=== PATIENT | male | born 1925 | race Caucasian/White ===

== ENCOUNTER 2017-08-12 16:32 | Inpatient (IN) | payer OTHER, BC ==
[~2017-08-12] VITALS: Ht 179.1 cm; Wt 110.1 kg
[2017-08-12] MEDS ORDERED: MICRO-K10 ME2 PO (18:19)
[2017-08-12] MEDS ORDERED: LEXAPRO5 MG PO (18:19)
[2017-08-12] MEDS ORDERED: FORTAMET500 M1 PO (18:19)
[2017-08-12] MEDS ORDERED: SYNTHROID100 MCG PO (18:19)
[2017-08-12] MEDS ORDERED: FUROSEMIDE20 MG PO (18:20)
[2017-08-12] MEDS ORDERED: ARICEPT5 MG PO (18:20)
[2017-08-12] MEDS ORDERED: NAMENDA10 MG PO (18:20)
[2017-08-12] MEDS ORDERED: ATORVASTATIN CA20 MG PO (18:20)
[2017-08-12] MEDS ORDERED: IMODIUM A-D2 M2 PO (18:20)
[2017-08-12] MEDS ORDERED: OCUVITE TABLET1 EACH PO (18:20)
[2017-08-12] MEDS ORDERED: COZAAR50 MG PO (18:20)
[2017-08-12 18:29] LABS: HEMOGLOBIN 14.4 G/DL (12.5-16.6); MCH 33.4 PG (29.0-34.0); MCHC 33.5 G/DL (30.0-36.0); MCV 99.8 FL (86-99); PLATELET COUNT 197 K/uL (156-360); RBC DIS.WIDTH-CV 12.6 % (11.8-14.6); RBC DIS.WIDTH-SD 46.4 % (39-53); RED BLOOD COUNT 4.31 M/uL (4.00-5.50); WHITE BLOOD COUNT 7.4 K/uL (4.1-10.2)
[2017-08-12 18:38] LABS: CHLORIDE 103 mEq/L (99-109); POTASSIUM 4.5 mEq/L (3.7-5.4); SODIUM 142 mEq/L (136-147)
[2017-08-12 18:40] LABS: GLUCOSE 121 mg/dL (70-99)
[2017-08-12 18:44] LABS: CREATININE 1.2 mg/dL (0.6-1.3); GFR ESTIMATE (CALCULATED) > 59 mL/min/ (58.99-99999)
[2017-08-12 18:45] LABS: UREA NITROGEN (BUN) 14 mg/dL (9-23)
[2017-08-12 18:51] LABS: TROP-I INTERPRETATION NEGATIVE; TROPONIN-I 0.02 ng/mL (0.0-0.30)
[2017-08-12 18:58] LABS: APPEARANCE CLEAR ((CLEAR)); BILIRUBIN NEGATIVE; BLOOD NEGATIVE; COLOR YELLOW ((YELLOW)); GLUCOSE (STRIP) NEGATIVE; KETONES NEGATIVE; LEUKOCYTES NEGATIVE; NITRITE NEGATIVE; PROTEIN (STRIP) NEGATIVE; SPECIFIC GRAVITY 1.018 (1.000-1.030); UROBILINOGEN 0.2 MG/DL (0.2-1.0)
[2017-08-12 19:38] LABS: THYROTROPIN (TSH) 0.86 MIU/L (0.4-5.5)
[2017-08-12 21:00] VITALS: BP 183/79
[2017-08-12 23:55] VITALS: BP 149/68
[2017-08-13 04:00] VITALS: BP 150/67
[2017-08-13 09:16] LABS: TROP-I INTERPRETATION NEGATIVE; TROPONIN-I 0.01 ng/mL (0.0-0.30)
[2017-08-13 11:14] VITALS: BP 160/80
[2017-08-13 15:00] VITALS: BP 144/74
[2017-08-13 19:44] VITALS: BP 170/78
[2017-08-13 23:08] VITALS: BP 174/81
[2017-08-14 04:28] VITALS: BP 168/84
[2017-08-14 06:03] LABS: BASOPHIL (%) 0.2 % (0-1); EOSINOPHIL (%) 0 % (0-5); HEMATOCRIT 40.5 % (38.0-50.0); HEMOGLOBIN 13.7 G/DL (12.5-16.6); IMMATURE GRANULOCYTE (%) 0.4 % (0.0-0.7); LYMPHOCYTE (%) 9.9 % (15-42); LYMPHOCYTE COUNT 1.1 K/uL (1.0-2.8); MCH 33.1 PG (29.0-34.0); MCHC 33.8 G/DL (30.0-36.0); MCV 97.8 FL (86-99); MONOCYTE (%) 8.6 % (3-12); MONOCYTE COUNT 0.9 K/uL (0-0.8); NEUTROPHIL (%) 80.9 % (45-76); NEUTROPHIL COUNT 8.8 K/uL (1.8-6.4); PLATELET COUNT 165 K/uL (156-360); RBC DIS.WIDTH-CV 12.7 % (11.8-14.6); RBC DIS.WIDTH-SD 45.4 % (39-53); RED BLOOD COUNT 4.14 M/uL (4.00-5.50); WHITE BLOOD COUNT 10.9 K/uL (4.1-10.2)
[2017-08-14 06:43] LABS: CHLORIDE 101 MEQ/L (99-109); CREATININE 1.1 MG/DL (0.6-1.3); GFR ESTIMATE (CALCULATED) > 59 mL/min/ (58.99-99999); GLUCOSE 181 mg/dL (70-99); POTASSIUM 4.1 MEQ/L (3.7-5.4); SODIUM 138 MEQ/L (136-147)
[2017-08-14 07:01] LABS: UREA NITROGEN (BUN) 23 mg/dL (9-23)
[2017-08-14 07:31] VITALS: BP 176/89
[2017-08-14 10:52] VITALS: BP 187/95
[2017-08-14 15:47] VITALS: BP 193/100
[2017-08-14 20:02] VITALS: BP 192/98
[2017-08-14 23:53] VITALS: BP 142/70
[2017-08-15 08:37] VITALS: BP 140/78
[2017-08-15 11:52] VITALS: BP 169/86
[2017-08-15 19:40] VITALS: BP 188/92
[2017-08-15 23:56] VITALS: BP 140/82
[2017-08-16] VITALS (7 sets, daily range): BP systolic 91–172; BP diastolic 52–82
[2017-08-17 03:30] VITALS: BP 148/82
[2017-08-17 07:57] VITALS: BP 170/72
[2017-08-17 11:49] VITALS: BP 173/80
[2017-08-17 16:00] VITALS: BP 170/85
[2017-08-17 20:16] VITALS: BP 156/92
[2017-08-17 23:24] VITALS: BP 162/70
[2017-08-18 03:32] VITALS: BP 106/54
[2017-08-18 05:31] LABS: HEMATOCRIT 42.4 % (38.0-50.0); MCH 32.8 PG (29.0-34.0); MCV 99.3 FL (86-99); RBC DIS.WIDTH-CV 12.6 % (11.8-14.6); RED BLOOD COUNT 4.27 M/uL (4.00-5.50); WHITE BLOOD COUNT 10.3 K/uL (4.1-10.2)
[2017-08-18 05:35] LABS: PLATELET COUNT 219 K/uL (156-360)
[2017-08-18 05:57] LABS: CHLORIDE 102 MEQ/L (99-109); CREATININE 1.1 MG/DL (0.6-1.3); GFR ESTIMATE (CALCULATED) > 59 mL/min/ (58.99-99999); GLUCOSE 133 mg/dL (70-99); POTASSIUM 4.1 MEQ/L (3.7-5.4); SODIUM 143 MEQ/L (136-147); UREA NITROGEN (BUN) 31 mg/dL (9-23)
[2017-08-18 07:53] VITALS: BP 110/62
[2017-08-18 15:47] VITALS: BP 138/82
[2017-08-18 19:55] VITALS: BP 155/65
[2017-08-19] VITALS (7 sets, daily range): BP systolic 90–194; BP diastolic 48–94
[2017-08-19 06:31] LABS: HEMATOCRIT 44.4 % (38.0-50.0); HEMOGLOBIN 14.7 G/DL (12.5-16.6); MCHC 33.1 G/DL (30.0-36.0); MCV 96.5 FL (86-99); PLATELET COUNT 249 K/uL (156-360); RBC DIS.WIDTH-SD 43.1 % (39-53); WHITE BLOOD COUNT 11.4 K/uL (4.1-10.2)
[2017-08-19 06:52] LABS: CHLORIDE 102 MEQ/L (99-109); CREATININE 0.9 MG/DL (0.6-1.3); GFR ESTIMATE (CALCULATED) > 59 mL/min/ (58.99-99999); GLUCOSE 132 mg/dL (70-99); POTASSIUM 3.8 MEQ/L (3.7-5.4); SODIUM 141 MEQ/L (136-147); UREA NITROGEN (BUN) 26 mg/dL (9-23)
[2017-08-20 07:38] VITALS: BP 122/62
[2017-08-20] MEDS ORDERED: AMOX TR-K CLV1 EAC4 PO (10:45)
[2017-08-20] MEDS ORDERED: MUCINEX600 MG PO (11:29)
[2017-08-20] MEDS ORDERED: AMLODIPINE BESY10 MG PO (11:29)
[2017-08-20] MEDS ORDERED: COZAAR50 MG PO (11:29)
[2017-08-20 13:15] VITALS: BP 128/80
== END 2017-08-20 13:28 | DRG 193 ==
LOC: EME 16:32 → EDOF 19:30 → 3EAST 19:30 → ENRESERV 19:33 → 3EAST 20:52
PROVIDERS: Emergency Medicine; Hospitalist; Physician Assistant
DX: J11.00 Influenza due to unidentified influenza virus with unspecified type of pneumonia (principal); J81.0 Acute pulmonary edema; I10 Essential (primary) hypertension; Z66 Do not resuscitate; E78.5 Hyperlipidemia, unspecified; E11.65 Type 2 diabetes mellitus with hyperglycemia; E03.9 Hypothyroidism, unspecified; R06.2 Wheezing; J84.10 Pulmonary fibrosis, unspecified; E66.9 Obesity, unspecified; F02.80 Dementia in other diseases classified elsewhere, unspecified severity, without behavioral disturbance, psychotic disturbance, mood disturbance, and anxiety; J01.30 Acute sphenoidal sinusitis, unspecified; E11.51 Type 2 diabetes mellitus with diabetic peripheral angiopathy without gangrene; Z75.1 Person awaiting admission to adequate facility elsewhere; Z85.46 Personal history of malignant neoplasm of prostate; Z98.41 Cataract extraction status, right eye; Z98.42 Cataract extraction status, left eye; Z79.84 Long term (current) use of oral hypoglycemic drugs; Z68.34 Body mass index [BMI] 34.0-34.9, adult; Z82.49 Family history of ischemic heart disease and other diseases of the circulatory system
CPT/HCPCS: 70450; 71010; 71020; 80048; 81003; 82948; 83605; 84443; 84484; 85025; 85027; 85048; 87040; 87086; 87502; 93005; 94010; 94640; 94640 76; 94667; 94668; 94760; 94799; 97530 GO; 97530 GP; 99202; 99281; 99285; J0360; J0696; J1644; J1815; J7120